=== PATIENT | male | born 1960 | race American Indian/Alaskan Native ===

== ENCOUNTER 2016-11-16 11:52 | Emergency (ER) | payer MEDICAID, OTHER ==
[2016-11-16 12:07] VITALS: BMI 25.0
[2016-11-16 12:11] VITALS: BP 149/93; PULSE 88; RESP 16; TEMP 98.2; O2SAT 97
--- NOTE | 2016-11-16 13:30 | C.PDOC ---
History Of Present Illness 56-year-old male, comes in requesting detox from Heroin. Last use was yesterday. Patient denies any nausea/vomiting. No SI/HI. No other complaints Time Seen by Provider: 11/16/16 12:40 Chief Complaint (Nursing): Substance Abuse History Per: Patient History/Exam Limitations: no limitations Past Medical History Reviewed: Historical Data, Nursing Documentation, Vital Signs Vital Signs: Last Vital Signs Temp 98.2 F 11/16/16 12:07 Pulse 88 11/16/16 12:07 Resp 16 11/16/16 12:07 BP 149/93 H 11/16/16 12:07 Pulse Ox 97 11/16/16 17:59 Family History: States: Unknown Family Hx - Social History Hx Alcohol Use: No Hx Substance Use: Yes - Immunization History Hx Tetanus Toxoid Vaccination: No Hx Influenza Vaccination: No Hx Pneumococcal Vaccination: No Physical Exam - Physical Exam Appears: Non-toxic, No Acute Distress, Other (No signs or symptoms of acute withdrawal.) Skin: Normal Color, Warm, Dry, No Diaphoretic Head: Atraumatic, Normacephalic Eye(s): bilateral: Normal Inspection, PERRL Nose: Discharge (clear mucus) Oral Mucosa: Moist Tongue: Normal Appearing Neck: Normal ROM Chest: Symmetrical, No Deformity, No Tenderness Cardiovascular: Rhythm Regular, No Murmur Respiratory: Normal Breath Sounds, No Accessory Muscle Use, No Rales, No Rhonchi , No Wheezing Gastrointestinal/Abdominal: Bowel Sounds, Soft, No Tenderness Extremity: Normal ROM, No Pedal Edema, No Calf Tenderness Neurological/Psych: Oriented x3, Normal Speech, Normal Cognition ED Course And Treatment O2 Sat by Pulse Oximetry: 97 Medical Decision Making Medical Decision Making: No detox beds available. Pt will be dc for outpt f/u with clinic. Given information for detox coordinator and list of other facilities. All questions answered. Disposition Counseled Patient/Family Regarding: Diagnosis, Need For Followup - Disposition Disposition: HOME/ ROUTINE Disposition Time: 13:29 Condition: GOOD Additional Instructions: Call numbers on Detox list provided to find an available detox bed. Instructions: Opioid Dependence (ED) Forms: General Discharge Instructions - Clinical Impression Clinical Impression: Drug dependence - Scribe Statement The provider has reviewed the documentation as recorded by the Scribjasen Robledo All medical record entries made by the Scribe were at my direction and personally dictated by me. I have reviewed the chart and agree that the record accurately reflects my personal performance of the history, physical exam, medical decision making, and the department course for this patient. I have also personally directed, reviewed, and agree with the discharge instructions and disposition.
== END 2016-11-16 13:46 | disposition home or self-care (01) ==
LOC: C.ER 11:52
DX: F11.20 Opioid dependence, uncomplicated (principal)

== ENCOUNTER 2016-11-17 09:19 | Emergency (ER) | payer MEDICAID, OTHER ==
[2016-11-17 09:19] VITALS: BMI 25.0
[2016-11-17 09:26] VITALS: BP 148/78; PULSE 98; RESP 17; TEMP 98.3; O2SAT 99
--- NOTE | 2016-11-17 10:24 | C.PDOC ---
History Of Present Illness 56-year-old male, presents to the emergency department requesting detox from Heroin. Patients last use was yesterday. Denies any complaints at this time. No SI/HI. Time Seen by Provider: 11/17/16 09:48 Chief Complaint (Nursing): Substance Abuse History Per: Patient History/Exam Limitations: no limitations Past Medical History Reviewed: Historical Data, Nursing Documentation, Vital Signs Vital Signs: Last Vital Signs Temp 98.3 F 11/17/16 09:23 Pulse 98 H 11/17/16 09:23 Resp 17 11/17/16 09:23 BP 148/78 11/17/16 09:23 Pulse Ox 99 11/17/16 10:25 - Medical History PMH: Back Problems Family History: States: Unknown Family Hx - Social History Hx Alcohol Use: No Hx Substance Use: Yes - Immunization History Hx Tetanus Toxoid Vaccination: No Hx Influenza Vaccination: No Hx Pneumococcal Vaccination: No Review Of Systems Except As Marked, All Systems Reviewed And Found Negative. Constitutional: Negative for: Fever, Chills Respiratory: Negative for: Cough, Shortness of Breath Gastrointestinal: Negative for: Vomiting Psych: Negative for: Suicidal ideation Physical Exam - Physical Exam Appears: Non-toxic, No Acute Distress, Other (No signs/symptoms of acute withdrawal. Calm and cooperative.) Skin: Warm, Dry, No Rash Eye(s): bilateral: Normal Inspection, PERRL Nose: Normal Oral Mucosa: Moist Lips: Normal Appearing Neck: Normal ROM Respiratory: No Accessory Muscle Use Extremity: Normal ROM Neurological/Psych: Oriented x3, Normal Speech ED Course And Treatment O2 Sat by Pulse Oximetry: 99 Progress Note: Case discussed w/ workers' compensation claims examiner Rufino, who states that there are no detox beds available at this time. Patient will be discharged w/ list for other detox facilities, and information about pre-screening process/detox co- ordinator. Patient agreeable with plan. All questions were answered. Disposition Counseled Patient/Family Regarding: Need For Followup - Disposition Disposition: HOME/ ROUTINE Disposition Time: 10:30 Condition: STABLE Additional Instructions: Please call [phone] or [phone] to inquire about our Detox availability , may speak to coordinator Mariluz Instructions: Narcotic Abuse (ED) - POA Present On Arrival: None - Clinical Impression Clinical Impression: Drug abuse
== END 2016-11-17 10:43 | disposition home or self-care (01) ==
LOC: C.ER 09:19
DX: F19.10 Other psychoactive substance abuse, uncomplicated (principal)